=== PATIENT | male | born 1955 | race Caucasian/White ===

== ENCOUNTER 2019-02-27 01:28 | Inpatient (IN) | payer MEDICARE ==
[2019-02-25 05:26] VITALS: BP 105/47
[~2019-02-27] VITALS: Ht 172.7 cm; Wt 206.8 kg
[2019-02-27] VITALS (19 sets, daily range): BP systolic 66–128; BP diastolic 38–80
[2019-02-27] MEDS ORDERED: diltiazem-D5W 125mg/125ml 125 ML IV ONE (01:41)
[2019-02-27] MEDS ORDERED: normal saline 1000ML IV soln IVB ONE ×2 (01:45)
[2019-02-27] MEDS ORDERED: diltiazem 5mg/ml 5ml inj. IV ONE ×2 (01:45→02:05)
[2019-02-27 01:57] LABS: BASOPHILS # (AUTO) 0.1 X10'3 (0-0.2); BASOPHILS % (AUTO) 0.9 % (0-1); EOSINOPHILS % (AUTO) 0.1 % (0-6); HEMOGLOBIN 15.5 g/dl (14.0-17.9); LYMPHOCYTES # (AUTO) 0.8 X10'3 (1.1-4.8); LYMPHOCYTES % (AUTO) 10.4 % (21-51); MONOCYTES # (AUTO) 0.9 X10'3 (0-0.9); MONOCYTES % (AUTO) 10.8 % (2-12); NEUTROPHILS # (AUTO) 6.2 X10'3 (1.8-7.7); NEUTROPHILS % (AUTO) 77.8 % (42-75)
--- NOTE | 2019-02-27 02:00 | NUR ---
CONTACT INFORMATION: POA/DAUGHTER DIMITRI LI [phone]. ALSO HAS FRIEND LISTED ON HIS TRANSFER PAPERWORK, JUAN ALBERTO BARBOSA [phone].
[2019-02-27 02:10] LABS: PARTIAL THROMBOPLASTIN TIME 36 SECONDS (22-32)
[2019-02-27 02:13] LABS: ALANINE AMINOTRANSFERASE 300 U/L (12-78); ALBUMIN 3.3 G/DL (3.4-5.0); ALBUMIN/GLOBULIN RATIO 0.8 (1.1-1.5); ALKALINE PHOSPHATASE 117 IU/L (46-116); ANION GAP 4 (8-16); ASPARTATE AMINO TRANSFERASE 466 U/L (10-37); BILIRUBIN,TOTAL 2.9 MG/DL (0.1-1.0); BLOOD UREA NITROGEN 58 MG/DL (7-18); BUN/CREATININE RATIO 26.4 (5.4-32.0); CALCIUM 8.6 MG/DL (8.5-10.1); CHLORIDE 101 MMOL/L (99-107); POTASSIUM 5.2 MMOL/L (3.5-5.1); SODIUM 135 MMOL/L (135-145); TOTAL CARBON DIOXIDE 30.2 MMOL/L (24-32); TOTAL PROTEIN 7.3 G/DL (6.4-8.2); eGFR 30 ML/MIN
[2019-02-27 02:14] LABS: GLUCOSE 117 MG/DL (70-104)
[2019-02-27] MEDS: diltiazem-NS 100mg/100ml 100 ML IV SCH ×2 (02:18→13:45)
[2019-02-27 02:31] LABS: ABG BASE EXCESS -2.9 mmol/L (-2.0-3.0); ABG HCO3 23.9 mmol/L (22.0-26.0); ABG OXYGEN SATURATION 91.4 % (95-98); ABG PCO2 (T) 47.4 mmHg (35.0-45.0); ABG PH (T) 7.317 (7.350-7.450); ABG PO2 (T) 66.5 mmHg (83-108); ALLEN'S TEST Positive; FCOHb 1.8 % (0.5-1.5); FLOW 5 L/min; FMetHb 0.3 % (0.3-1.12); FO2Hb 89.5 % (94-100); PATIENT TEMPERATURE 36.3; TOTAL HEMOGLOBIN 15.8 G/dl (14.0-17.9)
[2019-02-27] MEDS ORDERED: ASPI-1265 PO (02:41)
[2019-02-27] MEDS ORDERED: HYDR25TA4 PO (02:41)
[2019-02-27 02:44] LABS: MAGNESIUM 1.7 MG/DL (1.5-2.4)
[2019-02-27] MEDS ORDERED: metoprolol tartrate 1mg/ml inj IV ONE (02:45)
[2019-02-27] MEDS ORDERED: normal saline 1000ml 1,000 ML IV SCH (02:45)
--- NOTE | 2019-02-27 02:48 | NUR ---
Spoke to Dr. Zuniga about patient's heart rate persisting in the 130s to 150s. Order for metoprolol placed. Will re-evaluate further medications afterward.
[2019-02-27] MEDS ORDERED: sodium bicarbonate (8.4%) inj. 75 MEQ in dextrose 5% water 500ml 500 ML IV SCH (03:00)
[2019-02-27 03:06] LABS: CKMB RELATIVE INDEX 0.9 RATIO (0-2.5); CREATINE KINASE 7317 U/L (39-308)
[2019-02-27 03:19] LABS: HEMATOCRIT 41.1 % (42.0-52.0); MEAN CORPUSCULAR HEMOGLOBIN 39.5 PG (27.0-31.0); MEAN CORPUSCULAR HGB CONC 37.7 g/dL (33.0-36.5); MEAN CORPUSCULAR VOLUME 104.9 FL (78-98); RED BLOOD COUNT 3.91 X10'6 (4.70-6.10); WHITE BLOOD COUNT 8.6 X10'3 (4.5-11.0)
[2019-02-27 03:20] LABS: MEAN PLATELET VOLUME 8.5 FL (7.4-10.4); PLATELET COUNT 242 X10'3 (140-440); RED CELL DISTRIBUTION WIDTH 16.4 % (11.5-14.5)
[2019-02-27] MEDS ORDERED: proCHLORperazine 10 MG/2 ml inj IV PRN (03:30)
[2019-02-27] MEDS ORDERED: acetaminophen 325mg tablet PO PRN ×2 (03:30)
[2019-02-27] MEDS ORDERED: HYDROcodone/acetaminophen 5mg/325mg tablet PO PRN (03:30)
[2019-02-27] MEDS ORDERED: HYDROcodone/acetaminophen 10/325mg tab PO PRN (03:30)
[2019-02-27] MEDS ORDERED: morphine 2 MG/ML inj. syringe IV PRN (03:30)
--- NOTE | 2019-02-27 03:30 | NUR ---
200mL dark socorro urine out from bernard catheter. Patient is upright in bed and breathing more easily than on arrival. Mary Kessler at bedside evaluating patient. Patient updated on POC and has no requests at this time.
[2019-02-27 03:32] LABS: MYOGLOBIN 9595 ng/ml (16-96)
--- NOTE | 2019-02-27 03:41 | NUR ---
Order from Mary Kessler to stop the bicarbonate drip and increase O2 from 5 liters to 6.
--- NOTE | 2019-02-27 04:08 | NUR ---
Patient's heart rate remains 110-130. Cardizem increased to 10mg/hr per protocol.
--- NOTE | 2019-02-27 05:00 | NUR ---
received report from Robb wynne no questions or concerns after assuming care
--- NOTE | 2019-02-27 06:15 | NUR ---
Patient in room CICU 2006. I have received report from night shift supervisor and had the opportunity to ask questions and assume patient care.
--- NOTE | 2019-02-27 06:25 | NUR ---
SBAR TO ENRICO ANGULO NO QUESTION OR CONCERNS AFTER ASSUMING CARE
[2019-02-27] MEDS ORDERED: etomidate 2mg/ml inj. ONE (08:00)
[2019-02-27] MEDS ORDERED: heparin, porcine 5000 units/ml vial SQ SCH (08:00)
[2019-02-27] MEDS ORDERED: rocuronium 10mg/ml inj IV ONE ×2 (08:00→12:30)
[2019-02-27] MEDS: docusate sod 100mg capsule PO SCH ×2 (08:32→20:52)
[2019-02-27] MEDS: famotidine/PF 10 mg/ml inj IV SCH (08:32)
[2019-02-27 09:42] LABS: ALBUMIN 2.9 G/DL (3.4-5.0); ANION GAP 9 (8-16); BLOOD UREA NITROGEN 58 MG/DL (7-18); BUN/CREATININE RATIO 29.7 (5.4-32.0); CALCIUM 8.1 MG/DL (8.5-10.1); CHLORIDE 103 MMOL/L (99-107); CREATININE 1.95 MG/DL (0.60-1.10); POTASSIUM 4.7 MMOL/L (3.5-5.1); SODIUM 138 MMOL/L (135-145); TOTAL CARBON DIOXIDE 26.1 MMOL/L (24-32); eGFR 35 ML/MIN
[2019-02-27 09:51] LABS: CREATINE KINASE 6231 U/L (39-308); GLUCOSE 128 MG/DL (70-104)
--- NOTE | 2019-02-27 11:00 | NUR ---
attempted to awaken patient very lethargic unable to respond of follow commands stroke alert called and took patient to CT scan
[2019-02-27] MEDS: sodium bicarbonate (8.4%) inj. 75 MEQ in dextrose 5% water 500ml 500 ML IV SCH ×3 (11:24→16:13)
[2019-02-27 11:36] LABS: ABG BASE EXCESS -1.3 mmol/L (-2.0-3.0); ABG HCO3 28.7 mmol/L (22.0-26.0); ABG OXYGEN SATURATION 95.7 % (95-98); ABG PCO2 (T) 74.3 mmHg (35.0-45.0); ABG PH (T) 7.204 (7.350-7.450); ABG PO2 (T) 99.1 mmHg (83-108); ALLEN'S TEST Positive; FCOHb 1.1 % (0.5-1.5); FLOW 10 L/min; FMetHb 0.3 % (0.3-1.12); FO2Hb 94.4 % (94-100); TOTAL HEMOGLOBIN 14.2 G/dl (14.0-17.9)
--- NOTE | 2019-02-27 12:00 | NUR ---
Arrived for a stroke alert, last known normal is unknown but patient is now not responding. Ct of the head completed and discussed with Dr Garcia does not want a neuro consult at this time, Patient to be intubated.
[2019-02-27] MEDS ORDERED: midazolam 2 mg/2 ml injection ONE (12:17)
--- NOTE | 2019-02-27 12:25 | NUR ---
ABG done and Dr Garcia decided to intubate this was done without complication
[2019-02-27] MEDS ORDERED: midazolam 2 mg/2 ml injection IV ONE (12:30)
[2019-02-27] MEDS ORDERED: etomidate 2mg/ml inj. IV ONE (12:30)
[2019-02-27] MEDS: midazolam 100mg in NS 100ml 100 ML IV PRN (13:33)
[2019-02-27] MEDS: FENTANYL-0.9 % NACL/PF 100 ML IV PRN (13:34)
[2019-02-27] MEDS ORDERED: NORepinephrine 8mg/ 250ml NS 250 ML IV ONE (14:05)
[2019-02-27 14:16] LABS: ABG BASE EXCESS -6.6 mmol/L (-2.0-3.0); ABG HCO3 21.9 mmol/L (22.0-26.0); ABG OXYGEN SATURATION 91.8 % (95-98); ABG PCO2 (T) 55.8 mmHg (35.0-45.0); ABG PH (T) 7.211 (7.350-7.450); ABG PO2 (T) 72.5 mmHg (83-108); ALLEN'S TEST Positive; FCOHb 1.2 % (0.5-1.5); FMetHb 0.2 % (0.3-1.12); FO2Hb 90.5 % (94-100); MINUTE VOLUME 9 L/min; PEEP 5 cm H2O; RESPIRATORY RATE 14 b/min; TIDAL VOLUME 550 mL; TOTAL HEMOGLOBIN 14.6 G/dl (14.0-17.9)
--- NOTE | 2019-02-27 15:00 | NUR ---
PICC line inserted in Patient's right upper arm, catheter tip in SVC of cavoatrial junction, xray confirmed. PICC REF# [id number], LOT # [id number], Exp Date 11/10/2019
[2019-02-27] MEDS ORDERED: thiamine 100mg/ml 2ml inj. IV ONE (15:05)
[2019-02-27] MEDS ORDERED: thiamine inj. 100 MG in normal saline 100ml IV soln 99 ML IV ONE (15:30)
--- NOTE | 2019-02-27 15:38 | NUR ---
Initial: Patient is intubated. transfer from [place] for higher level of care, found down and SOB; elevated liver enzymes, admitted with rhabdomyolysis, AFIB, TRAV, and PVD of lower extremities. Possible EtOH history, MCV is elevated, MD started pt on banana bag, folic acid, and vitamin B12. If prolonged intubation would benefit from tube feeding to meet nutrition needs. Recommend: 1. IF tube feeding while intubated recommend Vital High Protein at 70 ml/hr would provide total volume 1680 ml, 1680 inna, 147 g protein, and 1411 ml water. 2. IF TF, additional water flush 200 ml q 4 hours, prealbumin q sunday and sunday, daily wts Addendum: 02/27/19 at [address] Amended: Links added.
[2019-02-27] MEDS: MAGNESIUM IV SCH (16:00)
[2019-02-27] MEDS: THIAMINE IV SCH (16:00)
[2019-02-27] MEDS: [UNRECOGNIZED DRUG - OTHER] IV SCH (16:00)
[2019-02-27] MEDS: MVI, adult No.4 with vit. K 10 ML in dextrose 5% water 500ml 490 ML IV SCH ×2 (16:01)
[2019-02-27] MEDS: nystatin 15 GM ointment TP SCH ×2 (16:01→21:21)
[2019-02-27] MEDS: cyanocobalamin 500mcg tablet PO SCH (16:11)
[2019-02-27 17:09] LABS: ALBUMIN 2.7 G/DL (3.4-5.0); ANION GAP 10 (8-16); BLOOD UREA NITROGEN 58 MG/DL (7-18); BUN/CREATININE RATIO 31.9 (5.4-32.0); CALCIUM 8.2 MG/DL (8.5-10.1); CHLORIDE 102 MMOL/L (99-107); CREATININE 1.82 MG/DL (0.60-1.10); POTASSIUM 4.6 MMOL/L (3.5-5.1); SODIUM 139 MMOL/L (135-145); TOTAL CARBON DIOXIDE 26.7 MMOL/L (24-32); eGFR 38 ML/MIN
[2019-02-27 17:10] LABS: CREATINE KINASE 5602 U/L (39-308); GLUCOSE 129 MG/DL (70-104)
--- NOTE | 2019-02-27 18:05 | NUR ---
Problems reprioritized. Patient report given, questions answered & plan of care reviewed with oncoming shift.
--- NOTE | 2019-02-27 18:15 | NUR ---
assumed care from Claudia ANGULO no questions or concerns after assuming care
[2019-02-27] MEDS ORDERED: thiamine 100mg tablet PO SCH (20:00)
[2019-02-27 20:21] LABS: ALBUMIN 2.7 G/DL (3.4-5.0); ANION GAP 5 (8-16); BLOOD UREA NITROGEN 56 MG/DL (7-18); BUN/CREATININE RATIO 30.6 (5.4-32.0); CHLORIDE 103 MMOL/L (99-107); CREATININE 1.83 MG/DL (0.60-1.10); POTASSIUM 4.3 MMOL/L (3.5-5.1); SODIUM 137 MMOL/L (135-145); TOTAL CARBON DIOXIDE 29.2 MMOL/L (24-32); eGFR 37 ML/MIN
[2019-02-27 20:24] LABS: CREATINE KINASE 5193 U/L (39-308); GLUCOSE 146 MG/DL (70-104)
[2019-02-27] MEDS: normal saline 1000ml 1,000 ML IV SCH (21:21)
--- NOTE | 2019-02-27 21:37 | NUR ---
patient in bed eyes closed rr even un labored no observable s/s of acute stress at this time will continue to monitor
--- NOTE | 2019-02-27 22:55 | NUR ---
patient in bed eyes closed rr even un labored no observable s/s of acute stress at this time will continue to monitor
[2019-02-28] VITALS (23 sets, daily range): BP systolic 78–131; BP diastolic 48–72
[2019-02-28] MEDS: sodium bicarbonate (8.4%) inj. 75 MEQ in dextrose 5% water 500ml 500 ML IV SCH ×5 (00:15→22:22)
[2019-02-28] MEDS: midazolam 100mg in NS 100ml 100 ML IV PRN ×4 (00:16→20:36)
--- NOTE | 2019-02-28 00:30 | NUR ---
patient in bed eyes closed rr even un labored no observable s/s of acute stress at this time will continue to monitor
[2019-02-28] MEDS: diltiazem-NS 100mg/100ml 100 ML IV SCH ×2 (01:06→12:29)
[2019-02-28] MEDS: NORepinephrine 8mg/ 250ml NS 250 ML IV SCH ×3 (01:26→20:36)
[2019-02-28 02:04] LABS: ALANINE AMINOTRANSFERASE 194 U/L (12-78); ALBUMIN 2.7 G/DL (3.4-5.0); ALBUMIN/GLOBULIN RATIO 0.8 (1.1-1.5); ALKALINE PHOSPHATASE 84 IU/L (46-116); ANION GAP 3 (8-16); ASPARTATE AMINO TRANSFERASE 313 U/L (10-37); BILIRUBIN,TOTAL 2.5 MG/DL (0.1-1.0); BLOOD UREA NITROGEN 53 MG/DL (7-18); BUN/CREATININE RATIO 31.5 (5.4-32.0); CALCIUM 7.8 MG/DL (8.5-10.1); CHLORIDE 102 MMOL/L (99-107); CREATININE 1.68 MG/DL (0.60-1.10); MAGNESIUM 1.7 MG/DL (1.5-2.4); PHOSPHORUS 2.8 MG/DL (2.3-4.5); POTASSIUM 3.9 MMOL/L (3.5-5.1); SODIUM 137 MMOL/L (135-145); TOTAL CARBON DIOXIDE 31.9 MMOL/L (24-32); TOTAL PROTEIN 6.1 G/DL (6.4-8.2); eGFR 41 ML/MIN
[2019-02-28 02:06] LABS: GLUCOSE 152 MG/DL (70-104)
[2019-02-28 02:07] LABS: CREATINE KINASE 4086 U/L (39-308)
[2019-02-28 02:21] LABS: BASOPHILS % (AUTO) 0.3 % (0-1); EOSINOPHILS # (AUTO) 0.1 X10'3 (0-0.9); EOSINOPHILS % (AUTO) 0.8 % (0-6); HEMATOCRIT 43.8 % (42.0-52.0); HEMOGLOBIN 15.6 g/dl (14.0-17.9); LYMPHOCYTES # (AUTO) 1.1 X10'3 (1.1-4.8); LYMPHOCYTES % (AUTO) 16.6 % (21-51); MEAN CORPUSCULAR HEMOGLOBIN 35.2 PG (27.0-31.0); MEAN CORPUSCULAR HGB CONC 35.7 g/dL (33.0-36.5); MEAN CORPUSCULAR VOLUME 98.6 FL (78-98); MEAN PLATELET VOLUME 8.1 FL (7.4-10.4); MONOCYTES # (AUTO) 0.8 X10'3 (0-0.9); MONOCYTES % (AUTO) 11.6 % (2-12); NEUTROPHILS # (AUTO) 4.6 X10'3 (1.8-7.7); NEUTROPHILS % (AUTO) 70.7 % (42-75); RED BLOOD COUNT 4.44 X10'6 (4.70-6.10); RED CELL DISTRIBUTION WIDTH 16.5 % (11.5-14.5); WHITE BLOOD COUNT 6.6 X10'3 (4.5-11.0)
[2019-02-28 02:22] LABS: PLATELET COUNT 192 X10'3 (140-440)
--- NOTE | 2019-02-28 02:30 | NUR ---
PATIENT IN BED EYES CLOSED RR EVEN UN LABORED NO OBSERVABLE S/S OF ACUTE STRESS AT THIS TIME WILL CONTINUE TO MONITOR
[2019-02-28 03:11] LABS: ABG BASE EXCESS 3.7 mmol/L (-2.0-3.0); ABG HCO3 28.7 mmol/L (22.0-26.0); ABG OXYGEN SATURATION 92.2 % (95-98); ABG PCO2 (T) 44.9 mmHg (35.0-45.0); ABG PH (T) 7.424 (7.350-7.450); ABG PO2 (T) 63.8 mmHg (83-108); ALLEN'S TEST Positive; FCOHb 0.8 % (0.5-1.5); FMetHb 0.2 % (0.3-1.12); FO2Hb 91.3 % (94-100); MINUTE VOLUME 10 L/min; PATIENT TEMPERATURE 37.1; PEEP 5 cm H2O; RESPIRATORY RATE 18 b/min; RESPIRATORY RATE (OBSERVED) 18 b/min; TIDAL VOLUME 550 mL; TOTAL HEMOGLOBIN 14.4 G/dl (14.0-17.9)
--- NOTE | 2019-02-28 05:04 | NUR ---
patient in bed eyes closed rr even un labored no observable s/s of acute stress at this time
--- NOTE | 2019-02-28 05:35 | NUR ---
patient had a 18 beat run of v-tach Camron Mejia called no new orders charted in critical lab values as well.
--- NOTE | 2019-02-28 06:22 | NUR ---
Patient in room CICU 2006. I have received report from Dilip ANGULO and had the opportunity to ask questions and assume patient care.
--- NOTE | 2019-02-28 06:27 | NUR ---
sbar to romy ANGULO no questions or concerns after assuming care
[2019-02-28] MEDS: enoxaparin 30mg/0.3ml syringe SUBCUT SCH (07:42)
[2019-02-28] MEDS: enoxaparin 60mg/0.6ml syringe SUBCUT SCH (07:42)
[2019-02-28] MEDS: folic acid 1mg tablet PO SCH (07:43)
[2019-02-28] MEDS: cyanocobalamin 500mcg tablet PO SCH (07:43)
[2019-02-28] MEDS: nystatin 15 GM ointment TP SCH ×3 (07:43→21:00)
[2019-02-28] MEDS: famotidine/PF 10 mg/ml inj IV SCH (07:43)
[2019-02-28] MEDS: docusate sod 100mg capsule PO SCH (07:43)
[2019-02-28 08:39] LABS: ALBUMIN 2.1 G/DL (3.4-5.0); ANION GAP -3 (8-16); BLOOD UREA NITROGEN 44 MG/DL (7-18); BUN/CREATININE RATIO 29.7 (5.4-32.0); CALCIUM 6.4 MG/DL (8.5-10.1); CHLORIDE 99 MMOL/L (99-107); CREATININE 1.48 MG/DL (0.60-1.10); POTASSIUM 3.1 MMOL/L (3.5-5.1); SODIUM 138 MMOL/L (135-145); eGFR 48 ML/MIN
[2019-02-28 08:42] LABS: TOTAL CARBON DIOXIDE 42.4 MMOL/L (24-32)
[2019-02-28 08:43] LABS: CREATINE KINASE 2734 U/L (39-308)
--- NOTE | 2019-02-28 08:44 | NUR ---
Critical CO2 on chemistry panel at 42.4; Dr. Garcia notified. No new orders at this time.
[2019-02-28 08:45] LABS: GLUCOSE 516 MG/DL (70-104)
--- NOTE | 2019-02-28 08:47 | NUR ---
Critical Glucose 516; Roberto ANGULO aware; will recheck labs per RN.
[2019-02-28] MEDS: MVI, adult No.4 with vit. K 10 ML in dextrose 5% water 500ml 490 ML IV SCH ×2 (09:00)
[2019-02-28] MEDS: MAGNESIUM IV SCH (09:01)
[2019-02-28] MEDS: THIAMINE IV SCH (09:01)
[2019-02-28] MEDS: [UNRECOGNIZED DRUG - OTHER] IV SCH (09:01)
[2019-02-28] MEDS ORDERED: pneumococcal 23-VAL P-sac vacc 25 mcg/0.5ml vial IMVAC ONE (10:00)
[2019-02-28] MEDS ORDERED: FLU VACC QS2019-20 36MOS UP/PF 60 MCG/0.5 ML SYRINGE IMVAC ONE (10:00)
[2019-02-28 10:14] LABS: ALBUMIN 2.2 G/DL (3.4-5.0); ANION GAP 5 (8-16); BLOOD UREA NITROGEN 43 MG/DL (7-18); BUN/CREATININE RATIO 30.3 (5.4-32.0); CALCIUM 7.1 MG/DL (8.5-10.1); CHLORIDE 106 MMOL/L (99-107); CREATININE 1.42 MG/DL (0.60-1.10); SODIUM 140 MMOL/L (135-145); TOTAL CARBON DIOXIDE 29.2 MMOL/L (24-32); eGFR 50 ML/MIN
[2019-02-28 10:16] LABS: CREATINE KINASE 2695 U/L (39-308); GLUCOSE 155 MG/DL (70-104); POTASSIUM 3.4 MMOL/L (3.5-5.1)
--- NOTE | 2019-02-28 11:42 | NUR ---
Tube feeding consult, patient is now intubated and sedated, receiving fentanyl, levophed, and bicarb. Recommend using Vital High Protein, per Asphalt Tamper feeding should be at trickle rate for at least 24 hours, d/w RN at rounds. Will follow. Initial: Patient is intubated. transfer from [facility] for higher level of care, found down and SOB; elevated liver enzymes, admitted with rhabdomyolysis, AFIB, TRAV, and PVD of lower extremities. Possible EtOH history, MCV is elevated, MD started pt on banana bag, folic acid, and vitamin B12. If prolonged intubation would benefit from tube feeding to meet nutrition needs. Recommend: 1. Per Asphalt Tamper patient to receive tube feeding at trickle rate, recommend trickle at 30 ml/hr with vital high protein, will not meet needs. When OK with Asphalt Tamper recommend to advance tube feeding as tolerated by 20 ml q 8 with Vital High Protein at 70 ml/hr would provide total volume 1680 ml, 1680 inna, 147 g protein, and 1411 ml water. 2. When no longer trickle feeding recommend additional water flush 200 ml q 4 hours, prealbumin q sunday and sunday, daily wts Addendum: 02/28/19 at [address] Amended: Links added.
[2019-02-28] MEDS ORDERED: acetaminophen 325mg tablet OGT PRN ×2 (13:14)
[2019-02-28] MEDS: CefTRIAXone/D5W-Rocephin 1gm 50 ML IV SCH (15:05)
[2019-02-28] MEDS: mineral oil/petrolatum ophthal oint EACHEYE SCH ×2 (15:05→20:37)
[2019-02-28 15:10] LABS: ALBUMIN 2.8 G/DL (3.4-5.0); ANION GAP 4 (8-16); BLOOD UREA NITROGEN 46 MG/DL (7-18); BUN/CREATININE RATIO 31.3 (5.4-32.0); CALCIUM 8.1 MG/DL (8.5-10.1); CHLORIDE 103 MMOL/L (99-107); CREATININE 1.47 MG/DL (0.60-1.10); POTASSIUM 3.8 MMOL/L (3.5-5.1); SODIUM 138 MMOL/L (135-145); TOTAL CARBON DIOXIDE 30.9 MMOL/L (24-32); eGFR 48 ML/MIN
[2019-02-28 15:13] LABS: CREATINE KINASE 3527 U/L (39-308); GLUCOSE 178 MG/DL (70-104)
[2019-02-28] MEDS ORDERED: [UNRECOGNIZED DRUG - CODE] IV (16:02)
[2019-02-28] MEDS ORDERED: dextrose ORAL solution 15 GM/59 ML bottle PO PRN ×2 (17:45)
[2019-02-28] MEDS ORDERED: MESSAGE TO PHARMACY PO ONE (17:45)
[2019-02-28] MEDS ORDERED: dextrose 50%-water 50ml dispensing syringe IV PRN ×2 (17:45)
[2019-02-28] MEDS ORDERED: glucagon, human recombinant 1mg kit SUBCUT PRN (17:45)
[2019-02-28 18:09] LABS: CLARITY,URINE CLEAR (Clear); COLOR,URINE AMBER (Yellow); GLUCOSE, URINE NEGATIVE (Neg); KETONES,URINE NEGATIVE (Neg); LEUKOCYTE ESTERASE ,URINE SMALL (Neg); NITRITES, URINE NEGATIVE (Neg); OCCULT BLOOD,URINE LARGE (Neg); PROTEIN,URINE NEGATIVE (Neg)
[2019-02-28 18:10] LABS: UA COLLECTION TYPE CLN CATCH MIDSTREAM
[2019-02-28 18:18] LABS: TOTAL PROTEIN,URINE RANDOM 28.9 MG/DL
[2019-02-28 18:20] LABS: SODIUM,URINE RANDOM < 15 MEQ/L
--- NOTE | 2019-02-28 18:25 | NUR ---
assumed care from Yenni no questions or concerns after assuming care Addendum: 02/28/19 at 1845 by Dilip Cherry RN assumed care from Roberto ANGULO no questions or concerns after assuming care
[2019-02-28 18:27] LABS: OSMOLALITY UA 492 MOSM/K (50-1400)
[2019-02-28 18:30] LABS: BACTERIA,URINE FEW /HPF (Neg); MUCUS STRANDS NONE SEEN /LPF (Neg); SQUAMOUS EPITHELIAL CELL,UR NONE SEEN /LPF (FEW)
--- NOTE | 2019-02-28 18:38 | NUR ---
Problems reprioritized. Patient report given, questions answered & plan of care reviewed with Dilip ANGULO.
--- NOTE | 2019-02-28 18:40 | NUR ---
day shift RN reported if patient spo2 keeps declining that the had mentioned to pass on to noc shift for possibly administering a paralytic, requested an order for ABG to get baseline for noc shift, going over the blood gas with ACCOUNTING OFFICE MANAGER,CN came to conclusion at this time po2 is acceptable and will continue to monitor for need of paralytic medication
[2019-02-28 19:05] LABS: ABG BASE EXCESS 3.9 mmol/L (-2.0-3.0); ABG OXYGEN SATURATION 89.4 % (95-98); ABG PCO2 (T) 45.2 mmHg (35.0-45.0); ABG PH (T) 7.425 (7.350-7.450); ABG PO2 (T) 56.7 mmHg (83-108); ALLEN'S TEST Positive; FCOHb 0.8 % (0.5-1.5); FMetHb 0.2 % (0.3-1.12); FO2Hb 88.5 % (94-100); MINUTE VOLUME 11 L/min; PATIENT TEMPERATURE 36.8; PEEP 10 cm H2O; RESPIRATORY RATE 18 b/min; RESPIRATORY RATE (OBSERVED) 19 b/min; TIDAL VOLUME 550 mL; TOTAL HEMOGLOBIN 15.1 G/dl (14.0-17.9)
[2019-02-28 20:11] LABS: UA EOSINOPHILS NO EOS /HPF
[2019-02-28] MEDS: furosemide 10 MG/1 ML 10ml inj IV SCH (20:37)
[2019-02-28] MEDS: docusate sodium 100mg/10ml UD cup OGT SCH (20:37)
[2019-02-28] MEDS: insulin regular, human vial - multi-dose SQ SCH (20:40)
--- NOTE | 2019-02-28 20:40 | NUR ---
patient in bed eyes closed rr even n labored no observable s/s of acute stress at this time will continue to monitor
[2019-02-28] MEDS: insulin glargine (Lantus) pen - multi-dose SQ SCH (20:44)
[2019-02-28 21:54] LABS: ALBUMIN 2.5 G/DL (3.4-5.0); ANION GAP 2 (8-16); BLOOD UREA NITROGEN 42 MG/DL (7-18); BUN/CREATININE RATIO 29.8 (5.4-32.0); CALCIUM 7.8 MG/DL (8.5-10.1); CHLORIDE 103 MMOL/L (99-107); CREATINE KINASE 3743 U/L (39-308); CREATININE 1.41 MG/DL (0.60-1.10); GLUCOSE 166 MG/DL (70-104); POTASSIUM 3.7 MMOL/L (3.5-5.1); SODIUM 139 MMOL/L (135-145); TOTAL CARBON DIOXIDE 33.9 MMOL/L (24-32); eGFR 50 ML/MIN
[2019-02-28] MEDS ORDERED: magnesium Cl slow-release 64mg tablet PO PRN (22:45)
[2019-02-28] MEDS ORDERED: magnesium 4gm in 100ml NS 100 ML IV PRN (22:45)
--- NOTE | 2019-02-28 23:00 | NUR ---
patient in bed eyes closed rr even un labored no observable s/s of acute stress at this time will continue to monitor
[2019-03-01] VITALS (26 sets, daily range): BP systolic 78–131; BP diastolic 42–80
[2019-03-01] MEDS: diltiazem 30mg tablet OGT SCH ×3 (00:15→16:49)
[2019-03-01] MEDS: insulin regular, human vial - multi-dose SQ SCH ×4 (02:18→21:04)
[2019-03-01 02:19] LABS: BASOPHILS % (AUTO) 0.6 % (0-1); EOSINOPHILS % (AUTO) 0.5 % (0-6); HEMATOCRIT 39.3 % (42.0-52.0); HEMOGLOBIN 13.9 g/dl (14.0-17.9); LYMPHOCYTES # (AUTO) 1.3 X10'3 (1.1-4.8); LYMPHOCYTES % (AUTO) 15.6 % (21-51); MEAN CORPUSCULAR HEMOGLOBIN 35.6 PG (27.0-31.0); MEAN CORPUSCULAR HGB CONC 35.3 g/dL (33.0-36.5); MEAN PLATELET VOLUME 8.1 FL (7.4-10.4); MONOCYTES % (AUTO) 12.3 % (2-12); PLATELET COUNT 170 X10'3 (140-440); RED BLOOD COUNT 3.89 X10'6 (4.70-6.10); RED CELL DISTRIBUTION WIDTH 16.4 % (11.5-14.5); WHITE BLOOD COUNT 8.5 X10'3 (4.5-11.0)
[2019-03-01] MEDS: mineral oil/petrolatum ophthal oint EACHEYE SCH ×4 (02:19→19:25)
--- NOTE | 2019-03-01 02:25 | NUR ---
patient in bed eyes closed rr even un labored no observable s/s of acute stress at this time
[2019-03-01 02:39] LABS: ALANINE AMINOTRANSFERASE 142 U/L (12-78); ALBUMIN 2.2 G/DL (3.4-5.0); ALBUMIN/GLOBULIN RATIO 0.6 (1.1-1.5); ALKALINE PHOSPHATASE 73 IU/L (46-116); ANION GAP 2 (8-16); ASPARTATE AMINO TRANSFERASE 227 U/L (10-37); BILIRUBIN,TOTAL 2.5 MG/DL (0.1-1.0); BLOOD UREA NITROGEN 41 MG/DL (7-18); BUN/CREATININE RATIO 30.1 (5.4-32.0); CALCIUM 7.6 MG/DL (8.5-10.1); CHLORIDE 104 MMOL/L (99-107); CREATININE 1.36 MG/DL (0.60-1.10); MAGNESIUM 1.5 MG/DL (1.5-2.4); PHOSPHORUS 2.3 MG/DL (2.3-4.5); POTASSIUM 3.5 MMOL/L (3.5-5.1); SODIUM 141 MMOL/L (135-145); TOTAL CARBON DIOXIDE 34.8 MMOL/L (24-32); eGFR 53 ML/MIN
[2019-03-01 02:41] LABS: CREATINE KINASE 2332 U/L (39-308); GLUCOSE 173 MG/DL (70-104)
[2019-03-01] MEDS ORDERED: lactulose 20gm/30ml cup OGT PRN (03:30)
[2019-03-01] MEDS: midazolam 100mg in NS 100ml 100 ML IV PRN ×2 (03:34→16:49)
--- NOTE | 2019-03-01 03:38 | NUR ---
patient transferred to beri bed tolerated it well. patients eyes closed rr even un labored no observable s/s of acute stress at his time will continue to monitor
[2019-03-01 04:20] LABS: ABG BASE EXCESS 6.2 mmol/L (-2.0-3.0); ABG HCO3 30.7 mmol/L (22.0-26.0); ABG PCO2 (T) 43.8 mmHg (35.0-45.0); ABG PH (T) 7.464 (7.350-7.450); ABG PO2 (T) 59.7 mmHg (83-108); ALLEN'S TEST Positive; FCOHb 0.9 % (0.5-1.5); FMetHb 0.2 % (0.3-1.12); MINUTE VOLUME 11 L/min; PATIENT TEMPERATURE 37.1; PEEP 10 cm H2O; RESPIRATORY RATE 18 b/min; RESPIRATORY RATE (OBSERVED) 18 b/min; TIDAL VOLUME 550 mL; TOTAL HEMOGLOBIN 14.9 G/dl (14.0-17.9)
[2019-03-01] MEDS: NORepinephrine 8mg/ 250ml NS 250 ML IV SCH ×5 (04:31→19:23)
--- NOTE | 2019-03-01 04:46 | NUR ---
patient in bed eyes closed rr even un labored no observable s/s of acute stress at this time will continue to monitor
[2019-03-01] MEDS: sodium bicarbonate (8.4%) inj. 75 MEQ in dextrose 5% water 500ml 500 ML IV SCH ×4 (04:49→21:13)
--- NOTE | 2019-03-01 06:35 | NUR ---
SBAR TO EDIE ANGULO NO QUESTIONS OR CONCERNS AFTER ASSUMING CARE
[2019-03-01] MEDS: docusate sodium 100mg/10ml UD cup OGT SCH ×2 (07:01→19:35)
[2019-03-01] MEDS: cyanocobalamin 500mcg tablet OGT SCH (07:02)
[2019-03-01] MEDS: folic acid 1mg tablet PO SCH (07:02)
[2019-03-01] MEDS: CefTRIAXone/D5W-Rocephin 1gm 50 ML IV SCH (07:02)
[2019-03-01] MEDS: famotidine/PF 10 mg/ml inj IV SCH (07:02)
[2019-03-01] MEDS: furosemide 10 MG/1 ML 10ml inj IV SCH ×3 (07:02→21:31)
[2019-03-01] MEDS: [UNRECOGNIZED DRUG - OTHER] IV SCH (07:03)
[2019-03-01] MEDS: MAGNESIUM IV SCH (07:03)
[2019-03-01] MEDS: enoxaparin 30mg/0.3ml syringe SUBCUT SCH (07:03)
[2019-03-01] MEDS: THIAMINE IV SCH (07:03)
[2019-03-01] MEDS: enoxaparin 60mg/0.6ml syringe SUBCUT SCH (07:03)
[2019-03-01] MEDS: MVI, adult No.4 with vit. K 10 ML in dextrose 5% water 500ml 490 ML IV SCH ×2 (07:12)
[2019-03-01] MEDS: nystatin 15 GM ointment TP SCH ×3 (08:00→21:46)
[2019-03-01 09:08] LABS: ALBUMIN 2.2 G/DL (3.4-5.0); ANION GAP 0 (8-16); BLOOD UREA NITROGEN 37 MG/DL (7-18); BUN/CREATININE RATIO 28.7 (5.4-32.0); CALCIUM 7.4 MG/DL (8.5-10.1); CHLORIDE 105 MMOL/L (99-107); CREATININE 1.29 MG/DL (0.60-1.10); POTASSIUM 3.1 MMOL/L (3.5-5.1); SODIUM 142 MMOL/L (135-145); TOTAL CARBON DIOXIDE 37.4 MMOL/L (24-32); eGFR 56 ML/MIN
[2019-03-01 09:09] LABS: CREATINE KINASE 2190 U/L (39-308); GLUCOSE 154 MG/DL (70-104)
--- NOTE | 2019-03-01 10:12 | NUR ---
Reassessment: Pt remains intubated and tolerating trickle TF with GRV WNL. TF recommendations to meet patient's estimated nutrient needs are below for once MD would like to increase trickle to recommended goal rate. Will continue to follow. Recommend: 1. Per Tin Pot Operator patient to receive tube feeding at trickle rate, recommend trickle at 30 ml/hr with vital high protein, will not meet needs. 2. When OK with Tin Pot Operator, recommend to advance tube feeding as tolerated by 20 mL Q8H with Vital High Protein to goal rage of 70 ml/hr. To provide total volume 1680 ml, 1680 inna, 147 g protein, and 1411 ml water. 3. When no longer trickle feeding recommend additional water flush 200 mL q 4 hours 4. Prealbumin q Sunday and 5. Daily wts Addendum: 03/01/19 at [address] Amended: Links added.
[2019-03-01 15:22] LABS: ALBUMIN 2.3 G/DL (3.4-5.0); ANION GAP 3 (8-16); BLOOD UREA NITROGEN 36 MG/DL (7-18); BUN/CREATININE RATIO 28.3 (5.4-32.0); CALCIUM 7.8 MG/DL (8.5-10.1); CHLORIDE 103 MMOL/L (99-107); CREATININE 1.27 MG/DL (0.60-1.10); POTASSIUM 3.1 MMOL/L (3.5-5.1); SODIUM 143 MMOL/L (135-145); TOTAL CARBON DIOXIDE 37.2 MMOL/L (24-32); eGFR 57 ML/MIN
[2019-03-01 15:25] LABS: CREATINE KINASE 2205 U/L (39-308); GLUCOSE 131 MG/DL (70-104)
--- NOTE | 2019-03-01 19:00 | NUR ---
FULL TURN TO ASSESS BACKSIDE AND ASSESS dti REPORTED. I DID NOT NOTE ANY DTI AND REVIEWED PHOTO BEFORE TURN IN BEDSIDE CHART TO BE SURE I VIEWED CORRECT AREA. COCCYX IS REDDENED BUT ALL AREAS ARE BLANCHING. HYDROFOAM TO COCCYX. BACK OTHERWISE INTACT. PATIENT DID NOT DECOMPENSATE DURING TURN ACCEPT SATS FROM 98 % TO 94 % DURING TURN. vs WERE STABLE. PATIENT HAS SOME AGITATED MOVEMENT WITH TURN/DISTURBANCES BUT DOES NO OPEN EYES OR FOLLOW COMMANDS. PATIENT IS IN A BARIATRIC BED. AFTER THIS TURN, I PUT THE BED ON ROTATION MODE : 50 % RIGHT X 10 MIN, CENTER 10 MIN, 50 % LEFT 10 MIN. PATIENT SEEMS TO BE TOLERATING THIS THERAPY. WILL MONITOR CLOSELY - ALL TUBINGS, WIRES, ETT SECURE IN REGARDS TO ROTATION MODE.
[2019-03-01] MEDS: FENTANYL-0.9 % NACL/PF 100 ML IV PRN (19:02)
[2019-03-01] MEDS: normal saline 1000ml 1,000 ML IV SCH (19:20)
[2019-03-01 19:25] LABS: ABG BASE EXCESS 10.8 mmol/L (-2.0-3.0); ABG HCO3 35.7 mmol/L (22.0-26.0); ABG OXYGEN SATURATION 95.5 % (95-98); ABG PCO2 (T) 46.5 mmHg (35.0-45.0); ABG PH (T) 7.502 (7.350-7.450); ABG PO2 (T) 71.4 mmHg (83-108); ALLEN'S TEST Positive; FCOHb 1.2 % (0.5-1.5); FMetHb 0.2 % (0.3-1.12); FO2Hb 94.2 % (94-100); MINUTE VOLUME 11 L/min; PATIENT TEMPERATURE 36.6; PEEP 12 cm H2O; RESPIRATORY RATE 18 b/min; RESPIRATORY RATE (OBSERVED) 18 b/min; TIDAL VOLUME 550 mL; TOTAL HEMOGLOBIN 15.1 G/dl (14.0-17.9)
[2019-03-01] MEDS: albumin (Human) 5% 250ml 250 ML IV SCH ×2 (19:31→21:29)
--- NOTE | 2019-03-01 20:15 | NUR ---
abg drawn on vent settings of 100 % FIO2/PEEP 12. PO2 74.4. Fio2 to 90 %, pH 7.502 with HCO3 35.7. i brought this to GHASSAN lyon attention as well as that Bicarb gtt infuses at 50 ml/hr (3 amp/1liter). GHASSAN Lyon advises to leave Bicarb gtt and get another ABG near [place]. I let RT - Jennifer know by page - that ABG is due at [place]
[2019-03-01] MEDS: potassium Cl 20mEq/100mL bag 100 ML IV PRN ×2 (20:25→20:40)
[2019-03-01 20:48] LABS: ALBUMIN 2.3 G/DL (3.4-5.0); ANION GAP 2 (8-16); BLOOD UREA NITROGEN 35 MG/DL (7-18); BUN/CREATININE RATIO 28.2 (5.4-32.0); CALCIUM 7.7 MG/DL (8.5-10.1); CHLORIDE 103 MMOL/L (99-107); CREATININE 1.24 MG/DL (0.60-1.10); MAGNESIUM 1.4 MG/DL (1.5-2.4); PHOSPHORUS 2.6 MG/DL (2.3-4.5); SODIUM 144 MMOL/L (135-145); TOTAL CARBON DIOXIDE 38.6 MMOL/L (24-32); eGFR 59 ML/MIN
[2019-03-01 20:50] LABS: CREATINE KINASE 1846 U/L (39-308); GLUCOSE 135 MG/DL (70-104)
[2019-03-01] MEDS: insulin glargine (Lantus) pen - multi-dose SQ SCH (21:03)
--- NOTE | 2019-03-01 21:31 | NUR ---
at 20:00, i noted that potassium level was 3.1 this morning. i did not see that it was replaced. albumin and lasix dose held until bmp results returned. spoke to monisha Flanagan NP at 2014 who ordered to give 40 meq KCl IV even before the results returned. 20 KCl IVMB up near 20:30. potassium then resulted at 3.0. i just now gave the albumin and lasix that were due at 20:00. albumin and lasix given between the two 20 meq KCl IVMB. bmp due near 0200.
[2019-03-01 23:46] LABS: ABG BASE EXCESS 12.6 mmol/L (-2.0-3.0); ABG HCO3 37.1 mmol/L (22.0-26.0); ABG OXYGEN SATURATION 94.7 % (95-98); ABG PCO2 (T) 45.7 mmHg (35.0-45.0); ABG PH (T) 7.527 (7.350-7.450); ABG PO2 (T) 67.8 mmHg (83-108); ALLEN'S TEST Positive; FCOHb 0.5 % (0.5-1.5); FMetHb 0.2 % (0.3-1.12); MINUTE VOLUME 10 L/min; PATIENT TEMPERATURE 36.7; PEEP 12 cm H2O; RESPIRATORY RATE 18 b/min; RESPIRATORY RATE (OBSERVED) 18 b/min; TIDAL VOLUME 550 mL; TOTAL HEMOGLOBIN 14.5 G/dl (14.0-17.9)
[2019-03-02] VITALS (28 sets, daily range): BP systolic 86–171; BP diastolic 47–93
[2019-03-02] MEDS: diltiazem 30mg tablet OGT SCH ×3 (00:13→15:53)
--- NOTE | 2019-03-02 00:30 | NUR ---
CALL TO JUAN ALBERTO FERRELL RE THE HCO3 ON LAST ABG 37.1. LAST CO2 ON BMP 38.6. ORDER TO DECREASE BICARB GTT TO 30 ML/HR
[2019-03-02] MEDS: NORepinephrine 8mg/ 250ml NS 250 ML IV SCH ×4 (01:26→22:47)
[2019-03-02] MEDS: FENTANYL-0.9 % NACL/PF 100 ML IV PRN ×3 (01:36→20:57)
[2019-03-02] MEDS: mineral oil/petrolatum ophthal oint EACHEYE SCH ×4 (01:48→20:42)
[2019-03-02] MEDS: insulin regular, human vial - multi-dose SQ SCH ×4 (01:50→20:54)
[2019-03-02 02:11] LABS: ALANINE AMINOTRANSFERASE 101 U/L (12-78); ALBUMIN 2.1 G/DL (3.4-5.0); ALBUMIN/GLOBULIN RATIO 0.6 (1.1-1.5); ALKALINE PHOSPHATASE 64 IU/L (46-116); ANION GAP 2 (8-16); ASPARTATE AMINO TRANSFERASE 162 U/L (10-37); BILIRUBIN,TOTAL 1.9 MG/DL (0.1-1.0); BLOOD UREA NITROGEN 33 MG/DL (7-18); CALCIUM 7.6 MG/DL (8.5-10.1); CHLORIDE 106 MMOL/L (99-107); CREATININE 1.18 MG/DL (0.60-1.10); MAGNESIUM 1.3 MG/DL (1.5-2.4); PHOSPHORUS 2.6 MG/DL (2.3-4.5); SODIUM 146 MMOL/L (135-145); TOTAL CARBON DIOXIDE 38.5 MMOL/L (24-32); TOTAL PROTEIN 5.8 G/DL (6.4-8.2); eGFR 62 ML/MIN
[2019-03-02 02:14] LABS: GLUCOSE 109 MG/DL (70-104)
[2019-03-02] MEDS: potassium Cl 20mEq/100mL bag 100 ML IV PRN ×6 (02:22→17:06)
[2019-03-02 03:18] LABS: CREATINE KINASE 1061 U/L (39-308)
--- NOTE | 2019-03-02 03:58 | NUR ---
FULL TURN WITH 3 PEOPLE. CHARGE NURSE JASBIR KAISER AT BEDSIDE TO LOOK AT PATIENT BACK SIDE. THE ANAL AREA, THE SURROUNDING TISSUE, THE COCCYX/SACRUM ARE REDDENED BUT REMAIN BLANCHABLE. JASBIR KAISER AGREED. PATIENT DROPPED SAT TO 91 % DURING THIS FULL TURN BUT HAS RECOVERED WITH IN 2-3 MINUTES. CURRENTLY 93 - 94 %. PATIENT PLACED BACK ON ROTATION- SAME SETTINGS EARLIER. Addendum: 03/02/19 at 0422 by John Eduardo RN ADDENDUM - THIS BED ALSO HAS PERCUSSION VIBRATION THERAPY WHICH I WILL HAVE DAY RN CLARIFY IF MD WOULD LIKE SPECIAL SETTINGS/TIMES AND DURATION OF THERAPY ETC. NOTE ON CHART TO REMIND THIS THERAPY IS AVAILABLE
[2019-03-02 04:06] LABS: BASOPHILS % (AUTO) 0.4 % (0-1); EOSINOPHILS # (AUTO) 0.2 X10'3 (0-0.9); EOSINOPHILS % (AUTO) 2.3 % (0-6); HEMATOCRIT 39.1 % (42.0-52.0); HEMOGLOBIN 13.5 g/dl (14.0-17.9); LYMPHOCYTES # (AUTO) 1.4 X10'3 (1.1-4.8); LYMPHOCYTES % (AUTO) 18.8 % (21-51); MEAN CORPUSCULAR HEMOGLOBIN 33.9 PG (27.0-31.0); MEAN CORPUSCULAR HGB CONC 34.4 g/dL (33.0-36.5); MEAN CORPUSCULAR VOLUME 98.5 FL (78-98); MEAN PLATELET VOLUME 8.2 FL (7.4-10.4); MONOCYTES # (AUTO) 0.8 X10'3 (0-0.9); MONOCYTES % (AUTO) 11.2 % (2-12); NEUTROPHILS % (AUTO) 67.3 % (42-75); PLATELET COUNT 137 X10'3 (140-440); RED BLOOD COUNT 3.97 X10'6 (4.70-6.10); RED CELL DISTRIBUTION WIDTH 16.8 % (11.5-14.5); WHITE BLOOD COUNT 7.5 X10'3 (4.5-11.0)
--- NOTE | 2019-03-02 04:06 | NUR ---
MAKING SURE FEET DO NOT REST ON FOOT BOARD. PATIENT BED TIPPED TO RT WITH HEAD RAISED TO 30 DEGREES. MEPILEX ON BOTTO, OF FEET AND ALSO HEELS FOR PROTECTION. SCROTUM IS EXTREMELT EDEMATOUS - LIFTED WITH PILLOW CASE. MAKING SURE ECHEVARRIA CATHETER AND TUBING ARE NOT SITTING ON SCROTUM TO CAUSE TISSUE DAMAGE - SMALL WASH CLOTH TO BARRIER BETWEEN ECHEVARRIA AND SCROTUM. BARIATRIC BED WEIGHT 472.9 LBS = 215 KG. PATIENT WEIGHED 190.8 KG YESTERDAY HOWEVER I THINK THIS WAS WEIGHT FROM PREVIOUS BED. I CAN NOT EXPLAIN THE LARGE DIFFERENCE IN NUMBERS EXCEPT EACH BED COULD BE CALIBRATED DIFFERENTLY. WEIGHED PATIENT PER [facility] PROTOCOL IN TERMS OF BED POSITION WHAT SHOULD BE ON THE BED ETC. PATIENT HAS BEEN DIURESING REALLY WELL THIS SHIFT. ALSO - 190.8 KG IS NOT SAVED IN THIS BED. MY WEIGHT OF 215 KG IS SAVED. THIS WILL BE OUR BASELINE WHILE PATIENT IN THIS BED.
--- NOTE | 2019-03-02 04:30 | NUR ---
FOR CLARIFICATION. PATIENT RECEIVED 40 MEQ KCL EARLIER IN SHIFT. K= CAME BACK 3.0. I HUNG AN ADDITIONAL 80 WHICH SHOULD FINISH BY END OF THIS SHIFT. THE SECOND POTASSIUM RESULT (ALSO 3.0) WAS COLLECTED DURING AM LABS WHEN I WAS ONLY ON 2ND BAG OF 4 BAGS KCL IVMB (80 MEQ TOTAL). RECEIVED TOTAL OF 120 MEQ OF KCL THIS SHIFT.
[2019-03-02 05:06] LABS: ABG BASE EXCESS 12.2 mmol/L (-2.0-3.0); ABG HCO3 37.4 mmol/L (22.0-26.0); ABG OXYGEN SATURATION 93.9 % (95-98); ABG PCO2 (T) 49.2 mmHg (35.0-45.0); ABG PH (T) 7.499 (7.350-7.450); ABG PO2 (T) 68.1 mmHg (83-108); ALLEN'S TEST Positive; FCOHb 0.5 % (0.5-1.5); FMetHb 0.2 % (0.3-1.12); FO2Hb 93.2 % (94-100); MINUTE VOLUME 10 L/min; PEEP 12 cm H2O; RESPIRATORY RATE 18 b/min; RESPIRATORY RATE (OBSERVED) 18 b/min; TIDAL VOLUME 550 mL; TOTAL HEMOGLOBIN 15.2 G/dl (14.0-17.9)
[2019-03-02] MEDS: magnesium 2GM in 50ml NS 50 ML IV PRN ×2 (05:48→08:50)
--- NOTE | 2019-03-02 05:58 | NUR ---
PATIENT SATS NOT SEEN ABOVE 94 SINCE THE FULL TURN AND SHEET CHANGE. MOST RECENTLY RUNS 92-93 % o2 SAT. STILL ROTATING ON PREVIOUSLY DOCUMENTED SETTINGS. THIS MORNINGS P/F RATIO 76.6. CURRENTLY REPLACING MORNING MAGNESUIM WELL THE POTASSIUM. BMP FOLLOWING COMPLETION OF IVMB
[2019-03-02] MEDS: albumin (Human) 5% 250ml 250 ML IV SCH ×2 (07:04→20:42)
[2019-03-02] MEDS: MVI, adult No.4 with vit. K 10 ML in dextrose 5% water 500ml 490 ML IV SCH ×2 (07:05)
[2019-03-02] MEDS: docusate sodium 100mg/10ml UD cup OGT SCH ×2 (07:05→20:43)
[2019-03-02] MEDS: sodium bicarbonate (8.4%) inj. 75 MEQ in dextrose 5% water 500ml 500 ML IV SCH (07:05)
[2019-03-02] MEDS: CefTRIAXone/D5W-Rocephin 1gm 50 ML IV SCH (07:05)
[2019-03-02] MEDS: folic acid 1mg tablet PO SCH (07:05)
[2019-03-02] MEDS: cyanocobalamin 500mcg tablet OGT SCH (07:05)
[2019-03-02] MEDS: enoxaparin 30mg/0.3ml syringe SUBCUT SCH (07:06)
[2019-03-02] MEDS: furosemide 10 MG/1 ML 10ml inj IV SCH ×2 (07:06→20:43)
[2019-03-02] MEDS: [UNRECOGNIZED DRUG - OTHER] IV SCH (07:06)
[2019-03-02] MEDS: MAGNESIUM IV SCH (07:06)
[2019-03-02] MEDS: famotidine/PF 10 mg/ml inj IV SCH (07:06)
[2019-03-02] MEDS: nystatin 15 GM ointment TP SCH ×3 (07:06→20:52)
[2019-03-02] MEDS: THIAMINE IV SCH (07:06)
[2019-03-02] MEDS: enoxaparin 60mg/0.6ml syringe SUBCUT SCH (07:07)
[2019-03-02] MEDS: midazolam 100mg in NS 100ml 100 ML IV PRN ×4 (07:08→21:36)
[2019-03-02] MEDS ORDERED: folic acid 1mg tablet PO SCH (08:00)
[2019-03-02 08:39] LABS: ALBUMIN 2.2 G/DL (3.4-5.0); ANION GAP 2 (8-16); BLOOD UREA NITROGEN 30 MG/DL (7-18); CALCIUM 7.9 MG/DL (8.5-10.1); CHLORIDE 104 MMOL/L (99-107); MAGNESIUM 1.4 MG/DL (1.5-2.4); PHOSPHORUS 2.6 MG/DL (2.3-4.5); POTASSIUM 3.5 MMOL/L (3.5-5.1); SODIUM 144 MMOL/L (135-145); TOTAL CARBON DIOXIDE 38.4 MMOL/L (24-32); eGFR 61 ML/MIN
[2019-03-02 08:40] LABS: GLUCOSE 145 MG/DL (70-104)
--- NOTE | 2019-03-02 09:00 | NUR ---
MD Garcia rounded on patient. MD aware of current vitals, labs, vent settings, issues, changes, drip settings, Addendum: 03/02/19 at 1205 by Nigel Pak RN MD made aware of increased PVCs, PACS, with electrolytes being replaced. MD also aware of decreases in o2 saturations during suctioning, turning, oral care, other stimulation. also notified of thick yellow secretions in et tube, difficulty weaning vent.
[2019-03-02 10:51] LABS: ABG BASE EXCESS 14.2 mmol/L (-2.0-3.0); ABG HCO3 39.2 mmol/L (22.0-26.0); ABG OXYGEN SATURATION 93.5 % (95-98); ABG PCO2 (T) 49.3 mmHg (35.0-45.0); ABG PH (T) 7.518 (7.350-7.450); FCOHb 0.5 % (0.5-1.5); FMetHb 0.2 % (0.3-1.12); FO2Hb 92.8 % (94-100); MINUTE VOLUME 10 L/min; PATIENT TEMPERATURE 37.1; PEEP 12 cm H2O; RESPIRATORY RATE 18 b/min; RESPIRATORY RATE (OBSERVED) 18 b/min; TIDAL VOLUME 550 mL; TOTAL HEMOGLOBIN 14.4 G/dl (14.0-17.9)
[2019-03-02 15:44] LABS: ALBUMIN 2.4 G/DL (3.4-5.0); ANION GAP 2 (8-16); BLOOD UREA NITROGEN 30 MG/DL (7-18); BUN/CREATININE RATIO 26.8 (5.4-32.0); CALCIUM 8.1 MG/DL (8.5-10.1); CHLORIDE 103 MMOL/L (99-107); CREATININE 1.12 MG/DL (0.60-1.10); MAGNESIUM 1.6 MG/DL (1.5-2.4); POTASSIUM 3.2 MMOL/L (3.5-5.1); SODIUM 145 MMOL/L (135-145); TOTAL CARBON DIOXIDE 39.9 MMOL/L (24-32); eGFR 66 ML/MIN
[2019-03-02 15:46] LABS: GLUCOSE 125 MG/DL (70-104)
--- NOTE | 2019-03-02 19:00 | NUR ---
PATIENT WAS MOVED TO ROOM 2011B WITHOUT ANY COMPLICATIONS. ACCOMPANIED BY RT AND THREE RN'S. ALL LINES AND TUBINGS REMAIN SECURE AND IN PLACE.
[2019-03-02 19:06] LABS: ALBUMIN 2.4 G/DL (3.4-5.0); ANION GAP 3 (8-16); BLOOD UREA NITROGEN 28 MG/DL (7-18); BUN/CREATININE RATIO 25.5 (5.4-32.0); CALCIUM 8.1 MG/DL (8.5-10.1); CHLORIDE 104 MMOL/L (99-107); MAGNESIUM 1.5 MG/DL (1.5-2.4); POTASSIUM 3.8 MMOL/L (3.5-5.1); SODIUM 144 MMOL/L (135-145); TOTAL CARBON DIOXIDE 37.1 MMOL/L (24-32); eGFR 67 ML/MIN
[2019-03-02 19:34] LABS: GLUCOSE 117 MG/DL (70-104)
[2019-03-02] MEDS: insulin glargine (Lantus) pen - multi-dose SQ SCH (20:52)
[2019-03-03] VITALS (29 sets, daily range): BP systolic 68–144; BP diastolic 42–89
[2019-03-03] MEDS: diltiazem 30mg tablet OGT SCH ×4 (00:08→23:59)
[2019-03-03 00:46] LABS: ALANINE AMINOTRANSFERASE 76 U/L (12-78); ALBUMIN 2.1 G/DL (3.4-5.0); ALBUMIN/GLOBULIN RATIO 0.5 (1.1-1.5); ALKALINE PHOSPHATASE 60 IU/L (46-116); ANION GAP 1 (8-16); ASPARTATE AMINO TRANSFERASE 110 U/L (10-37); BILIRUBIN,TOTAL 1.8 MG/DL (0.1-1.0); BLOOD UREA NITROGEN 27 MG/DL (7-18); BUN/CREATININE RATIO 24.1 (5.4-32.0); CALCIUM 7.8 MG/DL (8.5-10.1); CHLORIDE 105 MMOL/L (99-107); CREATININE 1.12 MG/DL (0.60-1.10); MAGNESIUM 1.3 MG/DL (1.5-2.4); PHOSPHORUS 3.1 MG/DL (2.3-4.5); POTASSIUM 3.3 MMOL/L (3.5-5.1); PREALBUMIN 5.7 MG/DL (19-36); SODIUM 146 MMOL/L (135-145); TOTAL CARBON DIOXIDE 39.6 MMOL/L (24-32); eGFR 66 ML/MIN
[2019-03-03 00:58] LABS: GLUCOSE 113 MG/DL (70-104)
[2019-03-03] MEDS: magnesium 2GM in 50ml NS 50 ML IV PRN ×3 (01:44→19:54)
[2019-03-03] MEDS: potassium Cl 20mEq/100mL bag 100 ML IV PRN ×2 (01:44→03:14)
[2019-03-03] MEDS: insulin regular, human vial - multi-dose SQ SCH ×4 (02:06→20:33)
[2019-03-03 02:07] LABS: BASOPHILS % (AUTO) 0.2 % (0-1); EOSINOPHILS # (AUTO) 0.3 X10'3 (0-0.9); EOSINOPHILS % (AUTO) 3.7 % (0-6); HEMOGLOBIN 13.6 g/dl (14.0-17.9); LYMPHOCYTES # (AUTO) 1.7 X10'3 (1.1-4.8); LYMPHOCYTES % (AUTO) 22.4 % (21-51); MEAN CORPUSCULAR HEMOGLOBIN 34.5 PG (27.0-31.0); MEAN CORPUSCULAR HGB CONC 34.8 g/dL (33.0-36.5); MEAN CORPUSCULAR VOLUME 99.1 FL (78-98); MEAN PLATELET VOLUME 8.2 FL (7.4-10.4); MONOCYTES # (AUTO) 0.8 X10'3 (0-0.9); MONOCYTES % (AUTO) 10.9 % (2-12); NEUTROPHILS # (AUTO) 4.8 X10'3 (1.8-7.7); NEUTROPHILS % (AUTO) 62.8 % (42-75); PLATELET COUNT 150 X10'3 (140-440); RED BLOOD COUNT 3.93 X10'6 (4.70-6.10); RED CELL DISTRIBUTION WIDTH 17.3 % (11.5-14.5); WHITE BLOOD COUNT 7.7 X10'3 (4.5-11.0)
--- NOTE | 2019-03-03 02:11 | NUR ---
NOTED LARGE STY ON RIGHT EYE LID
[2019-03-03] MEDS: mineral oil/petrolatum ophthal oint EACHEYE SCH ×4 (02:12→19:55)
--- NOTE | 2019-03-03 03:03 | NUR ---
PRIOR TO TURNING, ALL THINGS IN PLACE FOR A QUICK TURN, 1-BED ROLL, 2 OPTIFOAM FOR COCCYX. TURNED PATIENT WITH 2 RN'S. PATIENT IS EXTREMELY DIFFICULT TO TURN DUE TO HIS LARGE SIZE WHICH DOES NOT MAKE FOR A SLICK TURN TO DECREASE PATIENT CHALLENGE. PATIENT BEGAN TO DESAT TO THE 50 'S, 100 % SXN WAS USED,FACE PURPLE, HYPOTENSIVE TO THE 60'S - WE QUICKLY FINISHED WHAT WE STARTED AND REPOSITIONED PATIENT UP AND DECREASE STIMULI. BED ROTATION IS NOT ON AT THIS TIME. WITH LEVOPHED, SITTING UP, 100 % SXN AND NO STIMULI - PATIENT RECOVERED FROM THIS WITH 5 MINUTES. SEE BEDSIDE CHART FOR COMPUTER DOCUMENTED VS DURING TURN. Addendum: 03/03/19 at 2341 by John Eduardo RN i wanted to add that the bed was malfuctioning regarding the brake, mattress inflation making this turn even more challenging. pass info to day rn to order a new bed
[2019-03-03] MEDS: FENTANYL-0.9 % NACL/PF 100 ML IV PRN ×3 (03:13→21:26)
[2019-03-03] MEDS ORDERED: diltiazem 5mg/ml 5ml inj. IV ONE ×2 (03:34→03:35)
--- NOTE | 2019-03-03 03:35 | NUR ---
SINCE THE TURN, PATIENT HAS BEEN AFIB 120-170 BPM. I THOUGHT IS WOULD RESOLVE BUT IT HASNT AFTER 10 MINUTES. CALL TO GHASSAN AVENDANO . ORDER FOR CARDIZEM 15 MG IV TIMES 1 AND DO NOT START DRIP.
[2019-03-03 04:25] LABS: ABG BASE EXCESS 11.2 mmol/L (-2.0-3.0); ABG HCO3 36.2 mmol/L (22.0-26.0); ABG OXYGEN SATURATION 93.8 % (95-98); ABG PCO2 (T) 48.7 mmHg (35.0-45.0); ABG PO2 (T) 68.9 mmHg (83-108); ALLEN'S TEST Positive; FCOHb 1.3 % (0.5-1.5); FMetHb 0.2 % (0.3-1.12); FO2Hb 92.4 % (94-100); MINUTE VOLUME 10 L/min; PATIENT TEMPERATURE 37.3; PEEP 12 cm H2O; RESPIRATORY RATE 18 b/min; RESPIRATORY RATE (OBSERVED) 18 b/min; TIDAL VOLUME 550 mL; TOTAL HEMOGLOBIN 14.8 G/dl (14.0-17.9)
[2019-03-03 04:32] LABS: ALBUMIN 2.2 G/DL (3.4-5.0); ANION GAP -1 (8-16); BLOOD UREA NITROGEN 29 MG/DL (7-18); BUN/CREATININE RATIO 26.1 (5.4-32.0); CALCIUM 7.9 MG/DL (8.5-10.1); CHLORIDE 105 MMOL/L (99-107); CREATININE 1.11 MG/DL (0.60-1.10); MAGNESIUM 1.6 MG/DL (1.5-2.4); PHOSPHORUS 3.4 MG/DL (2.3-4.5); POTASSIUM 3.8 MMOL/L (3.5-5.1); SODIUM 145 MMOL/L (135-145); eGFR 66 ML/MIN
[2019-03-03 04:33] LABS: GLUCOSE 97 MG/DL (70-104)
[2019-03-03 04:34] LABS: TOTAL CARBON DIOXIDE 40.6 MMOL/L (24-32)
[2019-03-03] MEDS: NORepinephrine 8mg/ 250ml NS 250 ML IV SCH ×3 (05:54→19:29)
--- NOTE | 2019-03-03 05:54 | NUR ---
CURRENTLY PATIENT HAS SETTLED FROM EXCITEMENT FROM TURNING. CURRENT O2 SAT 95 % WHICH IS BETTER THAN START OF SHIFT. THOUGH WE END THE SHIFT AT THE SAME RATE OF LEVOPHED - IT HAS BEEN TITRATED UP AND DOWN PER PROTOCOL THROUGHOUT THE SHIFT. PATIENT BP EXTREMELY LABILE AND VERY SENSITIVE TO LEVOPHED. BP PLUMMETS EVEN DURING A BAG CHANGE OR PAUSE ON THE IV PUMP. HR 90-106 BPM AND AFIB. VSS, PATIENT IS NOT IN DISTRESS AND APPEARS COMFORTABLE. HE IS COMPLIANT WITH THE VENT AND PIPS STILL 29 - 34. WE REACHED GOAL FOR TUBE FEEDING THIS SHIFT. NO COMPLICATIONS. U/O RESPONDS TO THE LASIX/ALBUMIN COCKTAIL - 4000 ML U/O THIS SHIFT
[2019-03-03] MEDS: albuterol 2.5 MG/3 ML nebule NEB PRN ×2 (07:03→11:22)
[2019-03-03] MEDS: furosemide 10 MG/1 ML 10ml inj IV SCH ×2 (07:06→20:37)
[2019-03-03] MEDS: albumin (Human) 5% 250ml 250 ML IV SCH ×2 (07:06→20:36)
[2019-03-03] MEDS: CefTRIAXone/D5W-Rocephin 1gm 50 ML IV SCH (07:06)
[2019-03-03] MEDS: folic acid 1mg tablet PO SCH (07:07)
[2019-03-03] MEDS: famotidine/PF 10 mg/ml inj IV SCH (07:07)
[2019-03-03] MEDS: docusate sodium 100mg/10ml UD cup OGT SCH ×2 (07:07→20:21)
[2019-03-03] MEDS: cyanocobalamin 500mcg tablet OGT SCH (07:07)
[2019-03-03] MEDS: enoxaparin 60mg/0.6ml syringe SUBCUT SCH (07:08)
[2019-03-03] MEDS: nystatin 15 GM ointment TP SCH ×3 (07:08→20:38)
[2019-03-03] MEDS: enoxaparin 30mg/0.3ml syringe SUBCUT SCH (07:08)
[2019-03-03] MEDS: MAGNESIUM IV SCH (07:09)
[2019-03-03] MEDS: THIAMINE IV SCH (07:09)
[2019-03-03] MEDS: MVI, adult No.4 with vit. K 10 ML in dextrose 5% water 500ml 490 ML IV SCH ×2 (07:09)
[2019-03-03] MEDS: [UNRECOGNIZED DRUG - OTHER] IV SCH (07:09)
--- NOTE | 2019-03-03 11:52 | NUR ---
Reassessment: Pt TF advanced to goal at [address] recs and pt tolerating. No BM yet this admit. Receiving lasix w/ 3-4L removal per shift per RN. Receiving electrolyte replacements daily per RN. Bilateral pleural effusions present w/ EF 40% per MD. Hx non-compliant w/ meds per RN. Will continue to monitor for EN tolerance. Recommend: 1. OGTF per MD using Vital High Protein to goal rate of 70 ml/hr. To provide total volume 1680 ml, 1680 inna, 147 g protein, and 1411 ml water. 3. water flush 200 mL q 4 hours 4. Prealbumin q Sunday and 5. Daily wts 6. Monitor for PALB results and increaesed EN needs w/ morbid obesity Addendum: 03/03/19 at [address] Amended: Links added.
[2019-03-03 12:40] LABS: OXYGEN SATURATION (MIXED VEN) 78.3 % (60-80); PO2 MIXED VENOUS (TEMP COR) 43.1 mmHg (35-46)
[2019-03-03] MEDS: spironolactone 25 MG tablet PO SCH ×2 (12:52→20:37)
[2019-03-03] MEDS: midazolam 100mg in NS 100ml 100 ML IV PRN ×2 (13:00→19:30)
[2019-03-03 13:11] LABS: D-DIMER 1.28 MG/L FEU (0-0.50)
[2019-03-03 15:51] LABS: CREATININE 1.12 MG/DL (0.60-1.10); POTASSIUM 3.6 MMOL/L (3.5-5.1); eGFR 66 ML/MIN
[2019-03-03] MEDS: normal saline 1000ml 1,000 ML IV SCH (17:06)
[2019-03-03 19:31] LABS: ALBUMIN 2.5 G/DL (3.4-5.0); ANION GAP 1 (8-16); BLOOD UREA NITROGEN 25 MG/DL (7-18); BUN/CREATININE RATIO 23.6 (5.4-32.0); CALCIUM 8.5 MG/DL (8.5-10.1); CHLORIDE 103 MMOL/L (99-107); CREATININE 1.06 MG/DL (0.60-1.10); MAGNESIUM 1.3 MG/DL (1.5-2.4); SODIUM 144 MMOL/L (135-145); TOTAL CARBON DIOXIDE 39.9 MMOL/L (24-32); eGFR 70 ML/MIN
[2019-03-03 19:50] LABS: GLUCOSE 134 MG/DL (70-104); PHOSPHORUS 4.4 MG/DL (2.3-4.5); POTASSIUM 4.7 MMOL/L (3.5-5.1)
[2019-03-03] MEDS: insulin glargine (Lantus) pen - multi-dose SQ SCH (20:36)
[2019-03-03] MEDS: thiamine 100mg tablet PO SCH (20:37)
[2019-03-04] VITALS (27 sets, daily range): BP systolic 76–164; BP diastolic 44–81
--- NOTE | 2019-03-04 01:38 | NUR ---
patient was fully turned for bed change. though patient did drop o2 sats to near 50 % and hypotensive to 60/30's, it was a much smoother turn and he recovered quickly after hob 30 degrees.
[2019-03-04] MEDS: mineral oil/petrolatum ophthal oint EACHEYE SCH ×4 (01:52→20:49)
[2019-03-04] MEDS: insulin regular, human vial - multi-dose SQ SCH ×4 (01:54→20:52)
[2019-03-04] MEDS: midazolam 100mg in NS 100ml 100 ML IV PRN ×4 (02:00→19:28)
--- NOTE | 2019-03-04 02:00 | NUR ---
Call to Camron Mejia NP in regards to patient HR. Similar to last night, approximately 1/2 hour after a full turn and bed change, patient went into [place] up to 160's and maintained 140-160 bpm. order for 15 mg cardizem IV x 1.
[2019-03-04] MEDS ORDERED: diltiazem 5mg/ml 5ml inj. IV ONE (02:10)
[2019-03-04 02:47] LABS: ALANINE AMINOTRANSFERASE 58 U/L (12-78); ALBUMIN 2.7 G/DL (3.4-5.0); ALBUMIN/GLOBULIN RATIO 0.6 (1.1-1.5); ALKALINE PHOSPHATASE 64 IU/L (46-116); ANION GAP 1 (8-16); ASPARTATE AMINO TRANSFERASE 69 U/L (10-37); BILIRUBIN,TOTAL 2.4 MG/DL (0.1-1.0); BLOOD UREA NITROGEN 24 MG/DL (7-18); CALCIUM 8.6 MG/DL (8.5-10.1); CHLORIDE 102 MMOL/L (99-107); CREATININE 1.09 MG/DL (0.60-1.10); MAGNESIUM 1.5 MG/DL (1.5-2.4); PHOSPHORUS 3.5 MG/DL (2.3-4.5); POTASSIUM 3.4 MMOL/L (3.5-5.1); SODIUM 144 MMOL/L (135-145); eGFR 68 ML/MIN
[2019-03-04 02:52] LABS: TOTAL CARBON DIOXIDE 40.7 MMOL/L (24-32)
[2019-03-04 02:54] LABS: GLUCOSE 111 MG/DL (70-104)
[2019-03-04 03:10] LABS: BASOPHILS # (AUTO) 0.1 X10'3 (0-0.2); BASOPHILS % (AUTO) 0.6 % (0-1); EOSINOPHILS # (AUTO) 0.3 X10'3 (0-0.9); EOSINOPHILS % (AUTO) 3.2 % (0-6); HEMATOCRIT 42.3 % (42.0-52.0); HEMOGLOBIN 14.5 g/dl (14.0-17.9); LYMPHOCYTES # (AUTO) 1.3 X10'3 (1.1-4.8); LYMPHOCYTES % (AUTO) 16.1 % (21-51); MEAN CORPUSCULAR HEMOGLOBIN 32.7 PG (27.0-31.0); MEAN CORPUSCULAR HGB CONC 34.2 g/dL (33.0-36.5); MEAN CORPUSCULAR VOLUME 95.7 FL (78-98); MONOCYTES # (AUTO) 0.8 X10'3 (0-0.9); MONOCYTES % (AUTO) 9.9 % (2-12); NEUTROPHILS # (AUTO) 5.8 X10'3 (1.8-7.7); NEUTROPHILS % (AUTO) 70.2 % (42-75); RED BLOOD COUNT 4.42 X10'6 (4.70-6.10); RED CELL DISTRIBUTION WIDTH 16.9 % (11.5-14.5); WHITE BLOOD COUNT 8.2 X10'3 (4.5-11.0)
[2019-03-04] MEDS: NORepinephrine 8mg/ 250ml NS 250 ML IV SCH ×3 (03:15→15:00)
[2019-03-04] MEDS: FENTANYL-0.9 % NACL/PF 100 ML IV PRN ×4 (03:40→21:44)
[2019-03-04 03:49] LABS: MEAN PLATELET VOLUME 8.4 FL (7.4-10.4); PLATELET COUNT 150 X10'3 (140-440)
--- NOTE | 2019-03-04 05:03 | NUR ---
Unfortunately, since this patient is on a third bed this week. there are widely conflicting weights. this compella bed weighs the patient this monring at 154.6 kg. the previous bed weighed him at 215 kg. the bed before that weighed him at 190 kg. patient has had three different beds in 4 days. it is all for better skin care for the patient, comfort etc however my documented morning weights this week are inconsistent. Unfortunately the bed that patient is on now has malfunctioned and is supposed to be getting a different bariatric bed this morning at 10 am.
[2019-03-04] MEDS: potassium Cl 20mEq/100mL bag 100 ML IV PRN ×2 (05:17→06:09)
--- NOTE | 2019-03-04 06:30 | NUR ---
Patient in room CICU 2010. I have received report from BAO and had the opportunity to ask questions and assume patient care.
[2019-03-04] MEDS: famotidine/PF 10 mg/ml inj IV SCH (08:20)
[2019-03-04] MEDS: CefTRIAXone/D5W-Rocephin 1gm 50 ML IV SCH (08:20)
[2019-03-04] MEDS: docusate sodium 100mg/10ml UD cup OGT SCH ×2 (08:20→20:46)
[2019-03-04] MEDS: diltiazem 30mg tablet OGT SCH ×3 (08:21→23:57)
[2019-03-04] MEDS: folic acid 1mg tablet PO SCH (08:21)
[2019-03-04] MEDS: spironolactone 25 MG tablet PO SCH ×3 (08:21→20:48)
[2019-03-04] MEDS: furosemide 10 MG/1 ML 10ml inj IV SCH ×2 (08:21→20:49)
[2019-03-04] MEDS: cyanocobalamin 500mcg tablet OGT SCH (08:21)
[2019-03-04] MEDS: thiamine 100mg tablet PO SCH ×2 (08:21→20:49)
[2019-03-04] MEDS: nystatin 15 GM ointment TP SCH ×3 (08:28→22:40)
[2019-03-04] MEDS: [UNRECOGNIZED DRUG - OTHER] IV SCH (08:50)
[2019-03-04] MEDS: THIAMINE IV SCH (08:50)
[2019-03-04] MEDS: MAGNESIUM IV SCH (08:50)
[2019-03-04 08:55] LABS: ABG HCO3 40.2 mmol/L (22.0-26.0); ABG OXYGEN SATURATION 95.5 % (95-98); ABG PCO2 (T) 57.1 mmHg (35.0-45.0); ABG PH (T) 7.468 (7.350-7.450); ABG PO2 (T) 80.6 mmHg (83-108); FCOHb 1.1 % (0.5-1.5); FMetHb 0.3 % (0.3-1.12); FO2Hb 94.2 % (94-100); MINUTE VOLUME 10 L/min; PATIENT TEMPERATURE 37.6; PEEP 12 cm H2O; RESPIRATORY RATE 18 b/min; RESPIRATORY RATE (OBSERVED) 18 b/min; TIDAL VOLUME 550 mL; TOTAL HEMOGLOBIN 14.7 G/dl (14.0-17.9)
--- NOTE | 2019-03-04 10:00 | NUR ---
PT OPENS EYES TO ORAL CARE- DOESNT FOCUS OR OBEY COMMANDS. MOVES FEET TO TOUCH. LARGE DIURESIS POST LASIX. LABS CHECKED POST K INFUSION AND PT FOR THORACENTESIS. DAUGHTER CALLED PER DR RODRIGUEZ'S REQUEST TO NOTIFY HER OF THORA THIS AFTERNOON AND THAT IR WILL CALL HER FOR CONSENT. WILL BE HERE AT ABOUT 2230. SHE IS AWARE THAT PER NIGHT NURSE, SHE CAN STILL VISIT.
[2019-03-04] MEDS ORDERED: FLU VACC QS2019-20 36MOS UP/PF 60 MCG/0.5 ML SYRINGE IMVAC ONE (12:10)
[2019-03-04] MEDS ORDERED: pneumococcal 23-VAL P-sac vacc 25 mcg/0.5ml vial IMVAC ONE (12:10)
--- NOTE | 2019-03-04 14:00 | NUR ---
pt changed to [facility] bed- tolerated well with assist of hovermat, woc here- turned and checked coccyx drsg- no dti noted. leaky site left hand drsg changed old puncture sites. drsgs removed ball of feet by woc- left off- bruises from pressure areas.
[2019-03-04] MEDS ORDERED: esmolol/sodium cl bag 250 ML IV ONE (15:07)
[2019-03-04] MEDS ORDERED: amiodarone 50MG/ML inj IV ONE (15:25)
[2019-03-04] MEDS ORDERED: amiodarone/D5 360MG/200ML BAG 200 ML IV ONE (15:26)
[2019-03-04] MEDS ORDERED: amiodarone 150mg/dext, iso-os 100 ML IV ONE ×2 (15:26→16:15)
--- NOTE | 2019-03-04 15:30 | NUR ---
rt chest thoracentesis done by ir with difficulty- poor toleration by pt. pt purple- repositioned. sbp down to 70's, sats down to 80's, hr up to 170- all numbers questionable as pt totally to left side. once complete 0f 250 to 450- returned to back- hr [address] razo talking with dr goldman- then nurs- 20 mg of esmolol given ivp. hr to [address] goldman here- will hang amiodarone and esmolol gtt. first cardioversion of 100- hr 180 to 99. gtts hung. esmolol at 50 mcg for hr 70s, then off then at 25 mcg- will observe
[2019-03-04] MEDS ORDERED: esmolol/sodium cl bag 250 ML IV PRN (16:15)
[2019-03-04 17:26] LABS: MAGNESIUM 1.8 MG/DL (1.5-2.4)
--- NOTE | 2019-03-04 18:00 | NUR ---
bed placed at 30 degrees rotation, then 10, but then placed pt flat as pts body turned so far to left- feeling pt not safe.
--- NOTE | 2019-03-04 18:00 | NUR ---
dr goldman left daughter a message re pt being unstable- she returned call- went over no compression, no defib status- agreed, her and brother on way
[2019-03-04] MEDS ORDERED: methylnaltrexone br 12mg/0.6ml inj***SubQ only SQ SCH (20:00)
[2019-03-04] MEDS: insulin glargine (Lantus) pen - multi-dose SQ SCH (20:50)
[2019-03-04] MEDS: amiodarone/D5 360MG/200ML BAG 200 ML IV SCH (21:35)
--- NOTE | 2019-03-04 22:00 | NUR ---
patients sister Sandy and his daughter Hoda are at bedside. all procedures explained and questions answered. Oriented to ICU routines, noises etc. hoda said that her brother and sister are trying to get here. She is aware that her father is extremely sick and dependant on vent and gtts. She is aware that her father is a limited code with no compressions, no defib or cardioversion. She hopes that patient will make it long for sister/brother to be here. They (entire family) will all discuss at that time how to move forward. Brother was expect tonight near 2230. Sister driving from [place] and expected some time tomorrow. Currently, patient is rotating on bariatric bed. Esmolol gtt remains off since 1944 and HR -57 bpm, extremely dependent on levophed dropping SBP almost the instant the gtt stops (for volume, change bag etc) Back up levophed at bedside and RN close to iv pump for quick intervention. Patient does not appear to be in pain. no distress. sats are 89 % on 100 % fio2. Since patient decompensates with full turn and becomes unstable, i will only keep shifting him and keep the bed rotating 20 % each direction. He tolerates these mild and gradual repositions.
[2019-03-05] VITALS (23 sets, daily range): BP systolic 78–138; BP diastolic 44–105
[2019-03-05] MEDS: midazolam 100mg in NS 100ml 100 ML IV PRN ×2 (01:07→06:24)
[2019-03-05] MEDS: NORepinephrine 8mg/ 250ml NS 250 ML IV SCH ×3 (01:08→14:50)
[2019-03-05] MEDS: mineral oil/petrolatum ophthal oint EACHEYE SCH ×4 (01:59→19:29)
[2019-03-05] MEDS: insulin regular, human vial - multi-dose SQ SCH ×2 (02:00→08:08)
[2019-03-05 02:11] LABS: ALANINE AMINOTRANSFERASE 46 U/L (12-78); ALBUMIN 2.3 G/DL (3.4-5.0); ALBUMIN/GLOBULIN RATIO 0.5 (1.1-1.5); ALKALINE PHOSPHATASE 60 IU/L (46-116); ANION GAP 1 (8-16); ASPARTATE AMINO TRANSFERASE 45 U/L (10-37); BILIRUBIN,TOTAL 1.6 MG/DL (0.1-1.0); BLOOD UREA NITROGEN 29 MG/DL (7-18); CALCIUM 8.3 MG/DL (8.5-10.1); CHLORIDE 102 MMOL/L (99-107); CREATININE 1.21 MG/DL (0.60-1.10); MAGNESIUM 1.5 MG/DL (1.5-2.4); PHOSPHORUS 3.3 MG/DL (2.3-4.5); POTASSIUM 3.6 MMOL/L (3.5-5.1); SODIUM 142 MMOL/L (135-145); TOTAL CARBON DIOXIDE 38.8 MMOL/L (24-32); TOTAL PROTEIN 6.8 G/DL (6.4-8.2); eGFR 60 ML/MIN
[2019-03-05 02:13] LABS: GLUCOSE 160 MG/DL (70-104)
[2019-03-05 02:33] LABS: EOSINOPHILS # (AUTO) 0.2 X10'3 (0-0.9)
[2019-03-05 02:36] LABS: BASOPHILS % (AUTO) 0.2 % (0-1); EOSINOPHILS % (AUTO) 1.6 % (0-6); HEMATOCRIT 37.5 % (42.0-52.0); HEMOGLOBIN 13.5 g/dl (14.0-17.9); LYMPHOCYTES # (AUTO) 1.3 X10'3 (1.1-4.8); LYMPHOCYTES % (AUTO) 12.9 % (21-51); MEAN CORPUSCULAR HEMOGLOBIN 38.8 PG (27.0-31.0); MEAN CORPUSCULAR HGB CONC 35.9 g/dL (33.0-36.5); MEAN PLATELET VOLUME 8.5 FL (7.4-10.4); MONOCYTES % (AUTO) 10.6 % (2-12); NEUTROPHILS # (AUTO) 7.3 X10'3 (1.8-7.7); NEUTROPHILS % (AUTO) 74.7 % (42-75); PLATELET COUNT 150 X10'3 (140-440); RED BLOOD COUNT 3.48 X10'6 (4.70-6.10); WHITE BLOOD COUNT 9.7 X10'3 (4.5-11.0)
[2019-03-05 03:55] LABS: ABG BASE EXCESS 11.5 mmol/L (-2.0-3.0); ABG HCO3 39.1 mmol/L (22.0-26.0); ABG OXYGEN SATURATION 85.7 % (95-98); ABG PCO2 (T) 62.7 mmHg (35.0-45.0); ABG PH (T) 7.414 (7.350-7.450); ABG PO2 (T) 55.1 mmHg (83-108); FCOHb 0.7 % (0.5-1.5); FMetHb 0.2 % (0.3-1.12); FO2Hb 84.9 % (94-100); MINUTE VOLUME 10 L/min; PATIENT TEMPERATURE 37.3; PEEP 12 cm H2O; RESPIRATORY RATE 18 b/min; RESPIRATORY RATE (OBSERVED) 18 b/min; TIDAL VOLUME 550 mL; TOTAL HEMOGLOBIN 15.8 G/dl (14.0-17.9)
--- NOTE | 2019-03-05 05:10 | NUR ---
nam beginning to become very positional.repositioned frequent. when there is a good wave form and leveled and zero'd, cuff differ SBP by 25 points but maps were fairly close (70 & 78). see vs spreadsheet. in case the nam doesnt work ot is pulled, there is a documented baseline to compare with NIBP
--- NOTE | 2019-03-05 06:30 | NUR ---
Patient in room CICU 2010. I have received report from lise and had the opportunity to ask questions and assume patient care.
[2019-03-05] MEDS: docusate sodium 100mg/10ml UD cup OGT SCH ×2 (07:58→19:29)
[2019-03-05] MEDS: cyanocobalamin 500mcg tablet OGT SCH (07:59)
[2019-03-05] MEDS: thiamine 100mg tablet PO SCH ×2 (08:00→19:29)
[2019-03-05] MEDS: folic acid 1mg tablet PO SCH (08:00)
[2019-03-05] MEDS: diltiazem 30mg tablet OGT SCH ×2 (08:00→18:00)
[2019-03-05] MEDS: famotidine/PF 10 mg/ml inj IV SCH (08:00)
[2019-03-05] MEDS: nystatin 15 GM ointment TP SCH ×3 (08:00→19:30)
[2019-03-05] MEDS: spironolactone 25 MG tablet PO SCH ×3 (08:00→19:29)
[2019-03-05] MEDS: MAGNESIUM IV SCH (08:01)
[2019-03-05] MEDS: furosemide 10 MG/1 ML 10ml inj IV SCH ×2 (08:01→19:29)
[2019-03-05] MEDS: THIAMINE IV SCH (08:01)
[2019-03-05] MEDS: [UNRECOGNIZED DRUG - OTHER] IV SCH (08:01)
[2019-03-05] MEDS: amiodarone/D5 360MG/200ML BAG 200 ML IV SCH (08:02)
[2019-03-05] MEDS: normal saline 1000ml 1,000 ML IV SCH (08:03)
[2019-03-05] MEDS: CefTRIAXone/D5W-Rocephin 1gm 50 ML IV SCH (08:03)
--- NOTE | 2019-03-05 09:00 | NUR ---
SON AND DAUGHTER IN- UPDATED- TEARFULL, AWARE MD NEXT DOOR, BUT LEFT TO' COMPOSE OURSELVES. PT WITH SOME MOVEMENT OF MOUTH- OPENED EYES BRIEFLY- NOTHING TO COMMANDS. UPDATE TO DR RODRIGUEZ- CVP REINSTATED- READINGG OF 19. MVO2 DONE IN THE 60'S. MIRLAX ORDERED, FENTANYL AND VERSED OFF FOR NOW PER DR RODRIGUEZ TO SEE IF PT WILL WAKE UP. DR RODRIGUEZ SPOKE WITH FAMILY. AWAITING OTHER DAUGHTER COMING FROM OUT OF STATE TO MAKE PT COMFORT CARE. SUPPORT TO FAMILY. PT ROTATED FROM BACK TO RT SIDE PER REQUEST OF DR RODRIGUEZ AT 20%.
[2019-03-05] MEDS: enoxaparin 60mg/0.6ml syringe SUBCUT SCH (10:00)
[2019-03-05] MEDS: enoxaparin 30mg/0.3ml syringe SUBCUT SCH (10:00)
[2019-03-05] MEDS: FENTANYL-0.9 % NACL/PF 100 ML IV PRN (10:16)
[2019-03-05] MEDS ORDERED: LORazepam 2 mg/ml vial IV PRN (10:50)
[2019-03-05] MEDS ORDERED: morphine 10mg/ml inj. IV PRN (10:50)
[2019-03-05 10:51] LABS: OXYGEN SATURATION (MIXED VEN) 68.8 % (60-80); PO2 MIXED VENOUS (TEMP COR) 35.6 mmHg (35-46)
--- NOTE | 2019-03-05 14:00 | NUR ---
INCREASED PEAK PRESSURES PER VENT- FENTANYL RESTARTED AT LOWER RATE, VERSED LEFT OFF. ROTATING BACK TO RT AT 20% TOLERATED WELL.
--- NOTE | 2019-03-05 17:54 | NUR ---
VERSED RESTARTED AT LOW DOSE R/T RESTLESS, HI PEAK PRESSURES AFTER SUCTION. BLOOD SUGAR NOT COVERED R/T TF TO BE DCD AND EXTUBATION TO COMFORT CARE WHEN DAUGHTER ARRIVES.
--- NOTE | 2019-03-05 18:06 | NUR ---
DAUGHTER AND SON BACK- OTHER DAUGHTER IS STILL 3 HOURS OUT. BOTH STILL TEARFUL- LITTLE CONVERSATION.
--- NOTE | 2019-03-05 18:30 | NUR ---
Patient in room CICU 2010. I have received report from ADELE Gonzalez and had the opportunity to ask questions and assume patient care.
[2019-03-05] MEDS: insulin glargine (Lantus) pen - multi-dose SQ SCH (19:30)
--- NOTE | 2019-03-05 19:31 | NUR ---
Night time medications not needed at this time, patient on comfort care, waiting on daughter to extubate and turn off pressors.
[2019-03-05] MEDS ORDERED: polyethylene glycol 3350 17gm powd pack PO SCH (21:00)
--- NOTE | 2019-03-05 21:37 | NUR ---
Rest of family has arrived from out of state, visiting with patient at this time.
--- NOTE | 2019-03-05 22:00 | NUR ---
Patient's 3 children have confirmed that they want to proceed with comfort care. Patient extubated at 2155 and pressors turned off at that time. Family at bedside.
--- NOTE | 2019-03-05 22:30 | NUR ---
RN IS TO DOCUMENT YES TO ALL APPLICABLE AREAS Pronouncement of : 1. Time Physician Notified:[id number] 2. Date of :03/05/19 3. Time of : 2227 4. DNR/Withdraw life support documented: Yes 5. Monitor strip has been placed on chart: Yes 6. Assessment process is of one-minute duration and includes following criteria: a) Patient is unresponsive to all stimuli: Yes b) Pupils fixed and non-reactive: Yes c) Auscultation of precordium reveals absence of heart tones: Yes d) Auscultation of lungs reveals absence of breath sounds: Yes e) Absence of blood pressure / all vital signs: Yes f) QRS complexes are not present on monitor / EKG strip:Yes g) Pacer spikes without capture: N/A 4. Comments: Family at bedside when patient and pronounced. Daughter Sheri confirmed mortuary of choice and signed for the release of patient's body.
--- NOTE | 2019-03-05 23:45 | NUR ---
[facility] called, awaiting for them to picker box operator of patients body.
--- NOTE | 2019-03-05 23:53 | NUR ---
Donor network notified of patient's time of . Patient previously confirmed not to be a candidate for organ donation earlier today at 0909.
[2019-03-06] MEDS ORDERED: FLU VACC QS2019-20 36MOS UP/PF 60 MCG/0.5 ML SYRINGE IMVAC ONE (09:55)
[2019-03-06] MEDS ORDERED: pneumococcal 23-VAL P-sac vacc 25 mcg/0.5ml vial IMVAC ONE (10:00)
== END 2019-03-05 22:28 | disposition expired | DRG 683 ==
LOC: ER 01:29 → ED HOLD 04:01 → CICU 2S 05:23
PROVIDERS: ADMIT Internal Medicine Critical Care Medicine; ATTEND Internal Medicine Critical Care Medicine
PROC: 0BH17EZ Insertion of Endotracheal Airway into Trachea, Via Natural or Artificial Opening (ICD-10-PCS; 2019-02-27)
PROC: 5A1955Z Respiratory Ventilation, Greater than 96 Consecutive Hours (ICD-10-PCS; 2019-02-27)
PROC: 4A133B1 Monitoring of Arterial Pressure, Peripheral, Percutaneous Approach (ICD-10-PCS; 2019-03-02)
PROC: 4A133J1 Monitoring of Arterial Pulse, Peripheral, Percutaneous Approach (ICD-10-PCS; 2019-03-02)
PROC: 0W9930Z Drainage of Right Pleural Cavity with Drainage Device, Percutaneous Approach (ICD-10-PCS; principal; 2019-03-04)
DX: N17.9 Acute kidney failure, unspecified (principal); M62.82 Rhabdomyolysis; Z68.44 Body mass index [BMI] 60.0-69.9, adult; I12.9 Hypertensive chronic kidney disease with stage 1 through stage 4 chronic kidney disease, or unspecified chronic kidney disease; E66.01 Morbid (severe) obesity due to excess calories; I73.9 Peripheral vascular disease, unspecified; I48.91 Unspecified atrial fibrillation; E11.51 Type 2 diabetes mellitus with diabetic peripheral angiopathy without gangrene; Z60.2 Problems related to living alone; F10.20 Alcohol dependence, uncomplicated; N18.9 Chronic kidney disease, unspecified; E11.22 Type 2 diabetes mellitus with diabetic chronic kidney disease; J43.9 Emphysema, unspecified; Z87.891 Personal history of nicotine dependence; Z88.5 Allergy status to narcotic agent; Z79.82 Long term (current) use of aspirin; Z79.899 Other long term (current) drug therapy
CPT/HCPCS: 32557; 36415; 36569; 36600; 70450; 71045; 76604; 76937; 80048; 80053; 81001; 82140; 82550; 82553; 82565; 82570; 82803; 82810; 82948; 83036; 83605; 83735; 83874; 83880; 83935; 84100; 84132; 84133; 84134; 84145; 84156; 84300; 84484; 85018; 85025; 85379; 85610; 85730; 87040; 87070; 87081; 87207; 93005; 93306; 93922; 93925; 93970; 94002; 94003; 94640; 94660; 94760; 96361; 96374; 96375; 96376; 97161; 97530; 99291; 99292; G0378; J0282; J0696; J1644; J1650; J1815; J1940; J2212; J2250; J3010; J3411; J3475; J3480; J3490; J7060; P9045